=== PATIENT | female | born 1930 | race Caucasian/White ===

== ENCOUNTER → 2017-09-26 | Outpatient (CLI) | payer OTHER ==
[~2017-09-26] MED LIST: ASCO250CH; Biotin1 MG; CHOL10002 PO; CODLIVC; FURO100EL PO; HYDCHL25 PO; HYDHCL25; LETR2.5; METO25ER PO; METO50ER PO
[2017-09-26 12:25] LABS: Source, Urine Clean Catch
[2017-09-26 14:59] LABS: Bilirubin, Urine Neg (Neg); Blood, Urine 5+ (Neg); Glucose Qualitative, Urine Neg (Neg); Ketones, Urine Neg (Neg); Leukocyte Esterase, Urine 3+ (Neg); Nitrite, Urine Neg (Neg); Protein, Urine 2+ (Neg); Specific Gravity, Urine 1.015 (1.003-1.022); Urobilinogen, Urine NORM (Normal); pH, Urine 6.5 (5.0-8.0)
[2017-09-26 15:05] LABS: Appearance, Urine Cloudy (Clear); Color, Urine Yellow (P-Yellow)
[2017-09-26 15:06] LABS: Red Blood Cells, Urine 25-50 /hpf (0-2); White Blood Cells, Urine 50-100 /hpf (0-5)
[2017-09-26 15:07] LABS: Bacteria Mod /hpf; Squamous Epithelial Cells Few /hpf (Few)
== END | disposition home or self-care (01) ==
LOC: LAB 11:40
PROVIDERS: Internal Medicine
DX: N39.0 Urinary tract infection, site not specified (principal)
CPT/HCPCS: 81001; 87077; 87086; 87186

== ENCOUNTER → 2017-09-29 | Outpatient (CLI) | payer OTHER ==
[2017-09-29 15:52] LABS: Source, Urine Clean Catch
[2017-09-29 18:58] LABS: Bilirubin, Urine Neg (Neg); Blood, Urine 5+ (Neg); Glucose Qualitative, Urine Neg (Neg); Ketones, Urine Neg (Neg); Leukocyte Esterase, Urine 3+ (Neg); Nitrite, Urine Neg (Neg); Protein, Urine 3+ (Neg); Specific Gravity, Urine 1.015 (1.003-1.022); Urobilinogen, Urine NORM (Normal)
[2017-09-29 19:13] LABS: Appearance, Urine Cloudy (Clear); Color, Urine Yellow (P-Yellow)
[2017-09-29 19:15] LABS: Bacteria Mod /hpf; Red Blood Cells, Urine TNTC /hpf (0-2); Squamous Epithelial Cells Few /hpf (Few)
== END | disposition home or self-care (01) ==
LOC: LAB SHORT 12:30 → LAB 12:30 → LAB FUT 09-27 16:15 → EDSTATUS 09-27 16:15
PROVIDERS: Internal Medicine
DX: N39.0 Urinary tract infection, site not specified (principal); R30.0 Dysuria
CPT/HCPCS: 81001; 87077; 87086; 87186

== ENCOUNTER 2018-12-08 08:50 | Emergency (ER) | payer OTHER ==
[~2018-12-08] VITALS: Ht 152.4 cm; Wt 63.5 kg
[2018-12-08] MEDS ORDERED: CEPH250A PO (09:11)
[2018-12-08] MEDS ORDERED: ALEN70 PO (09:12)
[2018-12-08] MEDS ORDERED: METO50 PO (09:12)
[2018-12-08] MEDS ORDERED: HYDCHL50 PO (09:13)
[2018-12-08] MEDS ORDERED: POTA10T PO (09:14)
[2018-12-08] MEDS ORDERED: LETR2.5 PO (09:14)
[2018-12-08] MEDS ORDERED: ASCO500 PO (09:15)
[2018-12-08] MEDS ORDERED: ERGO400 PO (09:15)
[2018-12-08] MEDS ORDERED: Meribin5 MG (09:17)
[2018-12-08 09:33] LABS: BASOPHILS ABSOLUTE AUTO 0.02 K/mm3 (0.00-0.23); BASOPHILS PERCENT AUTO 0 % (0-2); EOSINOPHILS ABSOLUTE AUTO 0.03 K/mm3 (0.00-0.68); EOSINOPHILS PERCENT AUTO 0 % (0-6); Hematocrit 38.3 % (33.0-51.0); Hemoglobin 12.8 g/dL (11.5-16.0); IMMATURE GRAN ABSOLUTE AUTO 0.02 K/mm3 (0.00-0.10); IMMATURE GRAN PERCENT AUTO 0 % (0-1); LYMPHOCYTES ABSOLUTE AUTO 1.12 K/mm3 (0.84-5.20); LYMPHOCYTES PERCENT AUTO 14 % (21-46); MONOCYTES ABSOLUTE AUTO 0.64 K/mm3 (0.16-1.47); MONOCYTES PERCENT AUTO 8 % (4-13); Mean Corpuscular HGB 30.6 pg (26.0-34.0); Mean Corpuscular HGB Conc 33.4 g/dL (31.5-36.5); Mean Corpuscular Volume 92 fL (80-100); Mean Platelet Volume 10.3 fL (9.1-12.4); NEUTROPHILS PERCENT AUTO 78 % (41-73); Platelet Count 227 K/mm3 (150-400); RDW Coefficient Variation 12.1 % (11.7-14.2); RDW Standard Deviation 40.6 fL (35.1-46.3); Red Blood Cell Count 4.18 M/mm3 (3.80-5.20); White Blood Cell Count 8.13 K/mm3 (4.00-11.30)
[2018-12-08 10:03] LABS: Troponin I 0.015 ng/mL (0.000-0.040)
[2018-12-08 10:15] LABS: Alanine Aminotransfer (ALT/SGP 32 U/L (12-78); Albumin, Blood 3.4 g/dL (3.4-5.0); Albumin/Globulin Ratio 0.9 (0.8-1.8); Alk Phos 68 U/L (50-136); Anion Gap 12 mmol/L (6-16); Aspartate Aminotrans (AST/SGOT 36 U/L (12-37); Bilirubin, Total 1.2 mg/dL (0.1-1.0); Blood Urea Nitrogen 22 mg/dL (8-24); CO2, Blood 23 mmol/L (21-32); Chloride, Blood 97 mmol/L (98-108); Creatinine, Blood 0.92 mg/dL (0.40-1.00); Globulin, Blood 3.8 g/dL (2.2-4.0); Glomerular Filtration Rate >60 (60-); Glucose, Blood 131 mg/dL (70-99); Potassium, Blood 2.9 mmol/L (3.5-5.5); Sodium, Blood 132 mmol/L (136-145); Total Protein, Blood 7.2 g/dL (6.4-8.2)
[2018-12-08 10:38] LABS: Source, Urine Clean Catch
[2018-12-08 10:43] LABS: Bilirubin, Urine Neg (Neg); Blood, Urine 3+ (Neg); Glucose Qualitative, Urine Neg (Neg); Ketones, Urine 2+ (Neg); Leukocyte Esterase, Urine 3+ (Neg); Nitrite, Urine Pos (Neg); Protein, Urine 2+ (Neg); Urobilinogen, Urine NORM (Normal); pH, Urine 6.5 (5.0-8.0)
[2018-12-08 10:56] LABS: Appearance, Urine Hazy (Clear); Color, Urine Yellow (P-Yellow); White Blood Cells, Urine TNTC /hpf (0-5)
[2018-12-08 10:57] LABS: Bacteria Mod /hpf; Red Blood Cells, Urine 25-50 /hpf (0-2); Squamous Epithelial Cells Few /hpf (Few)
[2018-12-08 11:07] LABS: Influenza A Negative (NEGATIVE); Influenza B Negative (NEGATIVE)
[2018-12-08] MEDS ORDERED: Keflex500 MG PO (11:11)
== END 2018-12-08 15:05 | disposition home or self-care (01) ==
LOC: ER 08:50
PROVIDERS: Emergency Medicine
DX: N39.0 Urinary tract infection, site not specified (principal); E87.6 Hypokalemia; K52.9 Noninfective gastroenteritis and colitis, unspecified; I10 Essential (primary) hypertension; Z87.891 Personal history of nicotine dependence; Z88.8 Allergy status to other drugs, medicaments and biological substances; Z79.899 Other long term (current) drug therapy
CPT/HCPCS: 36415; 71046; 80053; 81001; 84484; 85025; 87077; 87086; 87186; 87804; 93005; 93010; 96361; 96365; 96367; 99284-25; J0696; J3480; J7030; P9612

== ENCOUNTER → 2018-12-20 | Outpatient (CLI) | payer OTHER ==
[~2018-12-20] MED LIST changes: +ALEN70 PO; +ASCO500 PO; +CEPH250A PO; +ERGO400 PO; +HYDCHL50 PO; +Keflex500 MG PO; +LETR2.5 PO; +METO50 PO; +Meribin5 MG; +POTA10T PO
[2018-12-20 12:28] LABS: Bilirubin, Urine Neg (Neg); Blood, Urine 5+ (Neg); Glucose Qualitative, Urine Neg (Neg); Ketones, Urine Neg (Neg); Leukocyte Esterase, Urine 3+ (Neg); Nitrite, Urine Neg (Neg); Protein, Urine 2+ (Neg); Specific Gravity, Urine 1.015 (1.003-1.022); Urobilinogen, Urine NORM (Normal)
[2018-12-20 12:42] LABS: Appearance, Urine Turbid (Clear); Color, Urine Yellow (P-Yellow)
[2018-12-20 12:46] LABS: White Blood Cells, Urine TNTC /hpf (0-5)
[2018-12-20 12:47] LABS: Bacteria Mod /hpf; Squamous Epithelial Cells Few /hpf (Few)
== END | disposition home or self-care (01) ==
LOC: LAB 09:30 → LAB SHORT 09:30 → LAB FUT 12-20 14:35
PROVIDERS: Internal Medicine
DX: N39.0 Urinary tract infection, site not specified (principal)
CPT/HCPCS: 81001; 87077; 87086; 87186

== ENCOUNTER → 2019-03-20 | Outpatient (CLI) | payer OTHER ==
[2019-03-20 11:46] LABS: Source, Urine Clean Catch
[2019-03-20 13:03] LABS: Bilirubin, Urine Neg (Neg); Blood, Urine 4+ (Neg); Glucose Qualitative, Urine Neg (Neg); Ketones, Urine Neg (Neg); Leukocyte Esterase, Urine 3+ (Neg); Nitrite, Urine Pos (Neg); Protein, Urine 2+ (Neg); Specific Gravity, Urine 1.015 (1.003-1.022); Urobilinogen, Urine NORM (Normal)
[2019-03-20 13:09] LABS: Appearance, Urine Hazy (Clear); Color, Urine Yellow (P-Yellow)
[2019-03-20 13:10] LABS: White Blood Cells, Urine TNTC /hpf (0-5)
[2019-03-20 13:12] LABS: Bacteria Many /hpf; Mucus Light (0-Heavy); Squamous Epithelial Cells Few /hpf (Few)
== END | disposition home or self-care (01) ==
LOC: LAB SHORT 11:45 → LAB 11:45
PROVIDERS: Internal Medicine
DX: N39.0 Urinary tract infection, site not specified (principal)
CPT/HCPCS: 81001; 87077; 87086; 87186

== ENCOUNTER → 2019-07-30 | Outpatient (CLI) | payer OTHER ==
[2019-07-30 10:07] LABS: Source, Urine Clean Catch
[2019-07-30 10:42] LABS: Bilirubin, Urine Neg (Neg); Blood, Urine 5+ (Neg); Glucose Qualitative, Urine Neg (Neg); Ketones, Urine Neg (Neg); Leukocyte Esterase, Urine 3+ (Neg); Nitrite, Urine Pos (Neg); Protein, Urine 2+ (Neg); Specific Gravity, Urine 1.015 (1.003-1.022); Urobilinogen, Urine NORM (Normal)
[2019-07-30 11:17] LABS: Appearance, Urine Hazy (Clear); Color, Urine Yellow (P-Yellow)
[2019-07-30 11:23] LABS: Bacteria Many /hpf; Squamous Epithelial Cells Few /hpf (Few); Triple Phosphate Crystals Few /hpf
== END | disposition home or self-care (01) ==
LOC: LAB 10:06 → LAB SHORT 10:06
PROVIDERS: Internal Medicine
DX: N39.0 Urinary tract infection, site not specified (principal)
CPT/HCPCS: 81001; 87077; 87086; 87186

== ENCOUNTER 2020-07-09 11:53 | Observation (INO) | payer OTHER ==
[~2020-07-09] VITALS: Ht 154.9 cm; Wt 67.7 kg
[~2020-07-09 11:53] MED LIST changes: -ERGO400 PO; +Vitamin D2000 UNIT PO
[2020-07-09 12:44] LABS: BASOPHILS ABSOLUTE AUTO 0.08 K/mm3 (0.00-0.23); BASOPHILS PERCENT AUTO 1 % (0-2); EOSINOPHILS ABSOLUTE AUTO 0.41 K/mm3 (0.00-0.68); EOSINOPHILS PERCENT AUTO 4 % (0-6); Hematocrit 38.6 % (33.0-51.0); Hemoglobin 12.5 g/dL (11.5-16.0); IMMATURE GRAN PERCENT AUTO 1 % (0-1); LYMPHOCYTES ABSOLUTE AUTO 2.36 K/mm3 (0.84-5.20); LYMPHOCYTES PERCENT AUTO 24 % (21-46); MONOCYTES PERCENT AUTO 10 % (4-13); Mean Corpuscular HGB 30.6 pg (26.0-34.0); Mean Corpuscular HGB Conc 32.4 g/dL (31.5-36.5); Mean Corpuscular Volume 95 fL (80-100); Mean Platelet Volume 10.7 fL (9.1-12.4); NEUTROPHILS ABSOLUTE AUTO 5.86 K/mm3 (1.96-9.15); NEUTROPHILS PERCENT AUTO 60 % (41-73); Platelet Count 246 K/mm3 (150-400); RDW Coefficient Variation 12.4 % (11.7-14.2); RDW Standard Deviation 43.5 fL (35.1-46.3); Red Blood Cell Count 4.08 M/mm3 (3.80-5.20); White Blood Cell Count 9.81 K/mm3 (4.00-11.30)
[2020-07-09 12:46] LABS: Alanine Aminotransfer (ALT/SGP 20 U/L (12-78); Albumin, Blood 3.6 g/dL (3.4-5.0); Alk Phos 99 U/L (50-136); Anion Gap 8 mmol/L (6-16); Aspartate Aminotrans (AST/SGOT 16 U/L (12-37); Bilirubin, Total 0.7 mg/dL (0.1-1.0); Blood Urea Nitrogen 31 mg/dL (8-24); Bun/Creatinine Ratio 21.4 (12.0-20.0); CO2, Blood 26 mmol/L (21-32); Calcium, Blood 9.1 mg/dL (8.5-10.1); Chloride, Blood 106 mmol/L (98-108); Creatinine, Blood 1.45 mg/dL (0.40-1.00); Globulin, Blood 3.5 g/dL (2.2-4.0); Glomerular Filtration Rate 36 (60-); Glucose, Blood 149 mg/dL (70-99); Potassium, Blood 3.3 mmol/L (3.5-5.5); Sodium, Blood 140 mmol/L (136-145); Total Protein, Blood 7.1 g/dL (6.4-8.2); Troponin I <0.015 ng/mL (0.000-0.040)
[2020-07-09 14:51] LABS: Bilirubin, Urine Neg (Neg); Blood, Urine 3+ (Neg); Glucose Qualitative, Urine Neg (Neg); Ketones, Urine 1+ (Neg); Leukocyte Esterase, Urine 3+ (Neg); Nitrite, Urine Neg (Neg); Protein, Urine 2+ (Neg); Specific Gravity, Urine 1.015 (1.003-1.022); Urobilinogen, Urine NORM (Normal); pH, Urine 6.5 (5.0-8.0)
[2020-07-09 15:00] LABS: Appearance, Urine Cloudy (Clear); Color, Urine Yellow (P-Yellow); White Blood Cells, Urine 25-50 /hpf (0-5)
[2020-07-09 15:01] LABS: Bacteria Many /hpf; Squamous Epithelial Cells Few /hpf (Few)
--- NOTE | 2020-07-09 19:06 | NUR ---
ADMIT NOTE PT ARRIVED AT APPROX 1715 BY KLAUDIA FROM ED. PT WAS A 4 PERSON SLIDE. SHE EXPERIENCED SOME DIZZINESS WITH SITTING UP THAT WAS CONCERNING. DECIDED PT SHOULD BE ON BEDREST FOR NOW AND USE A BEDPAN NEEDED. PT USED BEDPAN TWICE WITH MINIMAL OUTPUT AND A FOUL SMELL. DISCUSSED WITH DR JUAREZ AND HE STARTED PT ON [place] AND INCREASED HER TYLENOL DOSE DUE TO PAIN OF THE SHOULDERS AND HEAD. DNR BRACELET WAS PLACED ON PT RIGHT WRIST. PT ORIENTED TO ROOM AND CALL SYSTEM.
[2020-07-10 09:43] LABS: Bun/Creatinine Ratio 27.7 (12.0-20.0); Calcium, Blood 8.6 mg/dL (8.5-10.1); Creatinine, Blood 1.12 mg/dL (0.40-1.00); Potassium, Blood 3.8 mmol/L (3.5-5.5)
--- NOTE | 2020-07-10 13:25 | NUR ---
ASSUMED CARE OF PATIENT AT 1305 AFTER SHE TRANSFERRED FROM ROOM 304. SHE IS ALERT, ORIENTED TO SELF ONLY. IN SRINIVASA VEST, WHICH SHE KEEPS TRYING TO REMOVE. NEEDS CONSTANT REDIRECTION. UP TO BSC X 1, GAIT UNSTEADY, NEEDED FWW AND GAIT BELT. ON TELEMETRY, SINUS DEANA AT 57. UP IN RECLINER AT THIS TIME.
[2020-07-10 14:35] LABS: Hematocrit 36.1 % (33.0-51.0); Hemoglobin 11.9 g/dL (11.5-16.0); Mean Corpuscular HGB 31.2 pg (26.0-34.0); Mean Corpuscular Volume 95 fL (80-100); Mean Platelet Volume 10.9 fL (9.1-12.4); Platelet Count 213 K/mm3 (150-400); RDW Coefficient Variation 12.6 % (11.7-14.2); RDW Standard Deviation 43.8 fL (35.1-46.3); Red Blood Cell Count 3.81 M/mm3 (3.80-5.20); White Blood Cell Count 13.65 K/mm3 (4.00-11.30)
--- NOTE | 2020-07-10 17:02 | NUR ---
Spoke with Bedside RN Renetta and discussed case. Pt resting in bed upon with her eyes closed upon arrival. Pt awakes to gentle voice. Pt is A&OX2 and denies pain at this time. Pt denies dyspnea at this time. Pt's eyes slowly closes through our conversation. Ended visit to allow Pt to rest. Spoke with Dr Haley and discussed case. Dr Haley reports Pt has dementia and will provide this diagnosis tomorrow. Called and spoke with Pt's brother Augustine. Provided update and engaged in therapeutic discussion regarding Pt having dementia. Discussed the importance of family appointing a decision maker. Augustine reports plan to discuss with other sibbling and Pt's daughter Jess. Discussed the importance of family helping Pt find a higher level of care. Pt currently lives independently at [facility]. Augustine reports Pt has been experiencing intermittent confusion and has been delusional prior to this hospital stay. Augustine expresses appreciation of conversation and reports no other concerns at this time. Will place social service consult for family to receive resourse to assist with Pt's needs. Palliative Care will remain available.
--- NOTE | 2020-07-10 17:02 | NUR ---
Spiritual care note: Mrs. Hodges was pleasantly confused and had trouble following through threads of conversation. She smiles easily and appeared to enjoy companionship, emotional encouragement, and prayer. She told me she was to a doctor and has one son. She lives alone, but son is local and checks on her. She fidgeted with her gown and funmilayo vest throughout conversation. She redirected easily, but would return to fidgeting a few minutes later. She denied pain/fear and appeared well cared-for by nursing. Mail Clerk services will remain available.
--- NOTE | 2020-07-10 19:14 | NUR ---
SHIFT SUMMARY: NO ACUTE EVENTS. ORIENTED TO SELF AND WHERE SHE LIVES ONLY. IS CONFUSED, IMPULSIVE, VERY UNSTEADY GAIT. ON TELEMETRY, SINUS DEANA IN THE 50'S WITH ONE EPISODE OF HR 46 WHILE SLEEPING. GETTING UP TO BSC WITH MAX ASSIST, URINE WITH FOUL ODOR. CARDIAC ECHO DONE. MODERATE APPETITE. C/O HEADACHE AND UPPER BACK; MEDICATED WITH TYLENOL WITH ADEQUATE RELIEF.
--- NOTE | 2020-07-11 04:39 | NUR ---
IRRIGATION FOREMAN SUMMARY ALERT AND ORIENTED TO SELF, BELIEVES WE ARE AT [facility] WHERE SHE RESIDES. DENIES PAIN OR N/T. APPEARED TO SLEEP T/O NIGHT. SRINIVASA VEST WAS DISCONTINUED AT 0320. VSS. NO ACUTE CHANGES AT THIS TIME. BED IN LOWEST POSITION WITH CALL LIGHT IN REACH. WILL CONTINUE TO MONITOR AND REPORT TO ONCOMING RN.
[2020-07-11 06:08] LABS: Bun/Creatinine Ratio 31.7 (12.0-20.0); Calcium, Blood 8.6 mg/dL (8.5-10.1); Creatinine, Blood 1.04 mg/dL (0.40-1.00); Potassium, Blood 3.7 mmol/L (3.5-5.5)
--- NOTE | 2020-07-11 09:54 | NUR ---
POLST: Pt's brother, Augustine, is present in the room. Discussed POLST form. Augustine states that the pt has expressed before that she would not like life sustaining interventions to prolong life. Instructed on benefits of POLST, resusitation interventions discussed. Augustine is going to pt's primary care doctor today. Instructed to take the document with him to assist with conversation. He expresses gratitude for information. Will remain available.
--- NOTE | 2020-07-11 10:37 | NUR ---
4800 MATHEUS FROM LAB CALLED RE PT. ESBL AND EBOLI IN URINE. NEEDS CONTACT PRECAUTIONS. SPOKE TO DR NUNEZ IN HALLWAY. NO NEW ORDERS.
--- NOTE | 2020-07-11 17:19 | NUR ---
PT QUITE PLEASANT TODAY. SOME CONFUSION. ABX CHANGED IS NOW ESBL AND ECOLI URINE. DENIES PAIN. 1 ASST TO BSC TODAY. REFUSING TO GO TO SNF BUT FEELS SHOULD BE ABLE TO GET HELP AT HOME - EXPECT BY TUESDAY. DR NUNEZ DID D/C IVF TODAY. NO NEW CONCERNS TODAY. BED IN LOW POSITION, CALL LITE IN REACH, CALLS APPROP BED ALARM ON FOR SAFETY.
--- NOTE | 2020-07-11 17:37 | NUR ---
PT BP UP THIS AFT. CALLED DR NUNEZ. CASIMIRO GIVE METOPROLOL EARLY. DONE
--- NOTE | 2020-07-12 05:44 | NUR ---
SHIFT SUMMARY- PT. ALERT WITH INTERMITTENT CONFUSION. HAD ELEVATED TEMP LAST NIGHT. MEDICATED WITH TYLENOL PER EMAR WITH GOOD EFFECT. ASLEEP T/O MOST OF THE NIGHT, NO APPARENT DISTRESS NOTED. NO COMPLAINTS OF PAIN THIS SHIFT. MAURO TO BACK OF HEAD INTACT. PT. ABLE TO MAKE NEEDS KNOWN BUT IMPULSIVE AT TIMES. CALL LIGHT WITHIN REACH, SIDE RAILS UPX2, AND BED ALARM ON. WILL CONT TO MONITOR.
--- NOTE | 2020-07-12 17:41 | NUR ---
SHIFT SUMMARY PATIENT DENIES PAIN, NAUSEA, AND SHORTNESS OF BREATH. PATIENT UP ONE ASSIST W/FWW TO BATHROOM. MAURO C/D/I. PATIENT ORIENTED AND COOPERATIVE WITH CARE BUT IMPULSIVE WHEN NEEDING TO USE RESTROOM. POOR PO INTAKE. PATIENT STATES NO APPETITE. PATIENT NAPPING OFF AND ON DURING SHIFT.
--- NOTE | 2020-07-13 05:44 | NUR ---
SHIFT SUMMARY- PT. PLEASANT, COOPERATIVE WITH CARE W/INTERMITTENT CONFUSION. IMPULSIVE AT TIMES. C/O HEADACHE LAST NIGHT. MEDICATED PER EMAR WITH GOOD RELIEF. RESTED COMFORTABLY T/O THE SHIFT, NO APPARENT DISTRESS NOTED. CALL LIGHT WITHIN REACH, SIDE RAILS UPX2, AND BED ALARM ON. WILL CONT TO MONITOR.
[2020-07-13 08:46] LABS: BASOPHILS ABSOLUTE AUTO 0.05 K/mm3 (0.00-0.23); BASOPHILS PERCENT AUTO 1 % (0-2); EOSINOPHILS ABSOLUTE AUTO 0.15 K/mm3 (0.00-0.68); EOSINOPHILS PERCENT AUTO 1 % (0-6); Hematocrit 34.8 % (33.0-51.0); Hemoglobin 11.7 g/dL (11.5-16.0); IMMATURE GRAN ABSOLUTE AUTO 0.05 K/mm3 (0.00-0.10); IMMATURE GRAN PERCENT AUTO 1 % (0-1); LYMPHOCYTES ABSOLUTE AUTO 0.99 K/mm3 (0.84-5.20); LYMPHOCYTES PERCENT AUTO 9 % (21-46); MONOCYTES PERCENT AUTO 11 % (4-13); Mean Corpuscular HGB 31.1 pg (26.0-34.0); Mean Corpuscular HGB Conc 33.6 g/dL (31.5-36.5); Mean Corpuscular Volume 93 fL (80-100); NEUTROPHILS ABSOLUTE AUTO 8.15 K/mm3 (1.96-9.15); NEUTROPHILS PERCENT AUTO 77 % (41-73); RDW Coefficient Variation 12.6 % (11.7-14.2); RDW Standard Deviation 43.4 fL (35.1-46.3); Red Blood Cell Count 3.76 M/mm3 (3.80-5.20); White Blood Cell Count 10.59 K/mm3 (4.00-11.30)
[2020-07-13 08:53] LABS: Mean Platelet Volume 11.4 fL (9.1-12.4)
[2020-07-13 09:18] LABS: Platelet Count 176 K/mm3 (150-400)
[2020-07-13 09:23] LABS: Albumin, Blood 2.8 g/dL (3.4-5.0); Albumin/Globulin Ratio 0.8 (0.8-1.8); Bilirubin, Total 1.1 mg/dL (0.1-1.0); Calcium, Blood 8.7 mg/dL (8.5-10.1); Creatinine, Blood 0.94 mg/dL (0.40-1.00); Globulin, Blood 3.5 g/dL (2.2-4.0); Potassium, Blood 4.4 mmol/L (3.5-5.5); Thyroid Stimulating Hormone 1.83 uIU/mL (0.360-4.800); Total Protein, Blood 6.3 g/dL (6.4-8.2)
--- NOTE | 2020-07-13 17:53 | NUR ---
SHIFT SUMMARY PATIENT MEDICATED X1 FOR HEADACHE THIS AFTERNOON. DENIES NAUSEA, AND SHORTNESS OF BREATH. PATIENT UP TO BATHROOM SBA W/FWW. PATIENT NAPPING OR WATCHING TV MOST OF SHIFT. UP IN CHAIR FOR MEALS. PLEASANT AND COOPERATIVE WITH CARE. POOR PO INTAKE DESPITE ENCOURAGEMENT TO EAT.
--- NOTE | 2020-07-14 03:59 | NUR ---
SHIFT SUMMARY- PT. VOIDING FREQUENTLY T/O THE NIGHT. NOTED TO BE UPSET SHE STATED "I AM NOT GETTING BETTER AND AM PEEING TOO OFTEN." REFUSED AM IV ABX. STATED SHE IS GOING TO LEAVE LATER THIS AM. PT. HAS BEEN A&O, WITH SOME CONFUSION THIS SHIFT. DOES NOT BELIEVE SHE IS AT [facility]. HAS HAD NO C/O PAIN DURING THE NIGHT. VSS. CALL LIGHT WITHIN REACH AND SIDE RAILS UPX2. WILL CONT TO MONITOR.
--- NOTE | 2020-07-14 12:43 | NUR ---
PATIENT REFUSING CARE: PATIENT REFUSING CARE UNTIL SHE CAN SPEAK WITH HER PCP (DR ROME JJ); HOSPITALIST (DR TELLEZ) AWARE. THIS NURSE ATTEMPTED TO SPEAK c DR JJ' OFFICE ([phone]), BUT 's OFFICE IS CLOSED ON TUESDAY. PT ADVISED THAT WILL NOT BE AVAILABLE UNTIL TUESDAY, WHEREUPON SHE REITEREATED HER REFUSAL TO ACCEPT NURSING CARE, INCLUDING PRESCRIBED MEDICATIONS, UNTIL ABLE TO SPEAK WITH DR. JJ. TM.
--- NOTE | 2020-07-14 19:17 | NUR ---
SHIFT SUMMARY: NO ACUTE CHANGES TO REPORT THIS SHIFT. A&O c OCC CONFUSION; REDIRECTABLE. PT UNCOOPERATIVE WITH MEDICATIONS & OTHER NURSING CARE FOR FIRST HALF OF SHIFT. LACERATION TO BACK OF HEAD c MAURO R/T FALL PRIOR TO ADMIT; WOUND C/D/I. PT COMES FROM [facility]; WILL NEED 24/7 CARE AT D/C. IV ABX CONTINUING. REPORT GIVEN TO ONCOMING RN.
--- NOTE | 2020-07-14 19:55 | NUR ---
ASSUMED CARE. NARCISO IS PLEASANT AOX2, DOES NOT KNOW DAY AND TIME. DOES KNOW WHY SHE CAME HERE. SHE IS ABLE TO STATE EVENTS LEADING UP TO THE FALL AND THAT SHE HAS HAD ISSUES BEFORE. SHE IS COOPERATIVE. STATES OCCATIONAL PAIN IN THE RIGHT SHOULDER WHEN HE MOVES IT. ABOUT 4/10. DENIES ANY PAIN MEDS AT THIS TIME. LUNGS ARE CLEAR, HR REGULAR. ATTENDS DRY. CALL LIGHT IS IN REACH. BED ALARM IS ON. WILL CONTINUE TO MONITOR.
--- NOTE | 2020-07-15 05:08 | NUR ---
SHIFT SUMMARY: NARCISO AOX2, WITH PERIODS OF CONFUSION T/O THE NIGHT. VERY IMPULSIVE AT TIMES AND FORGETS TO USE THE CALL LIGHT. FOLLOWS DIRECTIONS. HTN RUNNING IN THE 170'S. VASOTEC GIVEN, WILL RECHECK AND DOCUMENT. REST OF VS WNL. REPORTED MILD PAIN TO THE RIGHT SHOULDER WHEN SHE MOVES IT BUT DENIED PAIN MEDICATION. NO BRUISING NOTED. BRUISING TO RIGHT EYE HEALING. INCISION TO POSTERIOR OF HEAD WITH MAURO, NO SIGNS OF INFECTION, OPEN TO AIR. VERY WEAK WHEN SHE GETS UP TO [facility], AND REPORTS DIZZINESS. SLEPT WELL OFF AND ON. NO OTHER ACUTE CHANGES TO REPORT. BED ALARM IS ON AND CALL LIGHT IS IN REACH.
--- NOTE | 2020-07-15 19:09 | NUR ---
SHIFT SUMAMRY: NO ACUTE CHANGES TO REPORT THIS SHIFT. PT A&O; OCC CONFUSION; COOPERATIVE WITH NURSING CARE; REFUSING PHLEBOTOMY DRAWS. NO C/O PAIN. PT & OT FOLLOWING. 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 IV ABX CONTINUING. REPORT GIVEN TO ONCOMING RN.
--- NOTE | 2020-07-15 19:50 | NUR ---
ASSUMED CARE. NARCISO IS SLEEPING IN BED, AWAKEND EASILY. LAID BACK IN BED. DENIED ANY PAIN OR DISCOMFORT. STILL REPORTS OCCATIONAL HEADACHES, AND DIZZINESS WHEN SHE GETS UP AND MOVES. SHE STATES THE DIZZINESS GETS BETTER WHEN SHE IS UP FOR A WHILE. ATE HER CHICKEN TONIGHT BUT DID NOT WANT ANYTHING ELSE ON THE PLATE. STILL VERY WEAK ALL OVER. DENIES ANY NEEDS AT THIS TIME. CALL LIGHT IN REACH, BED ALARM IS ON.
--- NOTE | 2020-07-16 05:14 | NUR ---
SHIFT SUMMARY: NARCISO WAS MORE CONFUSED TONIGHT THINKING SHE WAS BACK AT HER PLACE. SHE THOUGHT THAT HER FRIEND WAS THE NEXT DOOR DOWN. SHE EVEN STATES THAT SHE TAKES CARE OF SOME OF THE LADIES THERE. CONTINUED TO RE-ORIENT HER, LATER IN THE NIGHT SHE BECAME MORE CLEAR. SHE HAD FREQUENT URINATION WITH URGENCY GOING ALMOST EVERY HOUR LITTLE AT A TIME. MILD BURNING WHEN SHE URINATES BUT STATES IT FEELS BETTER WHEN SHE GOES. STILL HAS SORENESS IN THE RIGHT SHOULDER AND NECK AREA. BRUISING IS HEALING. VS WNL FOR THE PATIENT, AFEBRILE. IV POSITIONAL TO INFUSE. NO OTHER CHANGES TO REPORT THIS SHIFT. BED ALARM ON, CALL LIGHT IN REACH.
[2020-07-16] MEDS ORDERED: ASPI81CH PO (11:15)
--- NOTE | 2020-07-16 16:10 | NUR ---
PT DISCHARGED WITH ORDERS, BROTHER JADYN AT BEDSIDE TO ASSIST SISTER HOME WITH HOME HEALTH. STATE UNDERSTANDING OF INFORMATION. SENT HOME WITH BELONGINGS. IV DC'D. WHEELCHAIR ESCORT OUT TO CAR FOR RIDE HOME.
== END 2020-07-16 14:54 | disposition home health service (06) ==
LOC: ER 11:53 → MEDS 11:54
PROVIDERS: Emergency Medicine; Internal Medicine; Nurse Practitioner Acute Care; ADMIT Hospitalist
DX: R55 Syncope and collapse (principal); S01.01XA Laceration without foreign body of scalp, initial encounter; G92 Toxic encephalopathy; N39.0 Urinary tract infection, site not specified; G30.9 Alzheimer's disease, unspecified; F02.80 Dementia in other diseases classified elsewhere, unspecified severity, without behavioral disturbance, psychotic disturbance, mood disturbance, and anxiety; B96.20 Unspecified Escherichia coli [E. coli] as the cause of diseases classified elsewhere; E87.6 Hypokalemia; I12.9 Hypertensive chronic kidney disease with stage 1 through stage 4 chronic kidney disease, or unspecified chronic kidney disease; N18.30 Chronic kidney disease, stage 3 unspecified; Z85.3 Personal history of malignant neoplasm of breast; Z87.442 Personal history of urinary calculi; Z79.82 Long term (current) use of aspirin; Z79.899 Other long term (current) drug therapy; Z88.5 Allergy status to narcotic agent; Z23 Encounter for immunization; Z90.13 Acquired absence of bilateral breasts and nipples; Z66 Do not resuscitate; Z16.12 Extended spectrum beta lactamase (ESBL) resistance; W18.30XA Fall on same level, unspecified, initial encounter; Y92.512 Supermarket, store or market as the place of occurrence of the external cause
CPT/HCPCS: 12002; 36415; 70450; 70551; 71045; 72125; 80048; 80053; 81001; 82607; 82746; 83735; 84443; 84484; 85025; 85027; 87077; 87086; 87186; 93005; 93010; 93306; 96365; 96366; 96367; 96374-59; 96375-59; 96376; 97116; 97162; 97165; 97530; 97530-CO; 97535; 97535-CO; 99285-25; A9270; A9270-GY; G0008; G0378; J0696; J2185; J2405; J7030; Q2038

== ENCOUNTER 2020-08-29 08:52 | Emergency (ER) | payer OTHER ==
[~2020-08-29] VITALS: Ht 165.1 cm; Wt 65.8 kg
[~2020-08-29 08:52] MED LIST changes: +ASPI81CH PO
== END 2020-08-29 11:41 | disposition home or self-care (01) ==
LOC: ER 08:52
DX: S90.512A Abrasion, left ankle, initial encounter (principal); F03.90 Unspecified dementia, unspecified severity, without behavioral disturbance, psychotic disturbance, mood disturbance, and anxiety; I13.0 Hypertensive heart and chronic kidney disease with heart failure and stage 1 through stage 4 chronic kidney disease, or unspecified chronic kidney disease; I50.9 Heart failure, unspecified; N18.30 Chronic kidney disease, stage 3 unspecified; Z87.442 Personal history of urinary calculi; Z79.899 Other long term (current) drug therapy; Z88.8 Allergy status to other drugs, medicaments and biological substances; Z79.82 Long term (current) use of aspirin; Z23 Encounter for immunization; W18.30XA Fall on same level, unspecified, initial encounter; Y92.481 Parking lot as the place of occurrence of the external cause
CPT/HCPCS: 73610; 90471; 90714; 99284-25

== ENCOUNTER → 2021-04-21 | Outpatient (CLI) | payer OTHER ==
[2021-04-21 17:41] LABS: Appearance, Urine Hazy (Clear); Bilirubin, Urine Neg (Neg); Blood, Urine 4+ (Neg); Color, Urine Yellow (P-Yellow); Glucose Qualitative, Urine Neg (Neg); Ketones, Urine 1+ (Neg); Leukocyte Esterase, Urine 3+ (Neg); Nitrite, Urine Neg (Neg); Protein, Urine 3+ (Neg); Urobilinogen, Urine NORM (Normal); pH, Urine 6.5 (5.0-8.0)
[2021-04-21 17:58] LABS: White Blood Cells, Urine 50-100 /hpf (0-5)
[2021-04-21 17:59] LABS: Bacteria Many /hpf; Squamous Epithelial Cells Rare /hpf (Few)
[2021-04-21 18:00] LABS: Hyaline Casts 0-2 /lpf (0-2)
== END | disposition home or self-care (01) ==
LOC: LAB SHORT 15:01 → LAB 15:01
PROVIDERS: Internal Medicine
DX: N39.0 Urinary tract infection, site not specified (principal)
CPT/HCPCS: 81001; 87077; 87086; 87186

== ENCOUNTER → 2021-04-22 | Outpatient (CLI) | payer OTHER | END | disposition home or self-care (01) | LOC: LAB 12:26 → LAB SHORT 12:26 | DX: L57.0 Actinic keratosis (principal) | CPT/HCPCS: 88305 ==